=== PATIENT | female | born 1980 | race Caucasian/White ===

== ENCOUNTER → 2016-11-30 | Outpatient (CLI) | payer MEDICARE, OTHER ==
--- NOTE | ~2016-11-30 | MR113 ---
[facility] A Service [facility] RADIOLOGY TEXT RESULTS PATIENT: JOSE PERALTA LOCATION: [facility] : [birth year] UNIT #: [id number] AGE: [address]: Nico Stuart MD SEX: F ORDER DR: [id number] [address] [address] [id number] O MR#: [id number] Acc #: [id number] NAME: JOSE PERALTA. : 1980 SEX: F STUDY DATE/TIME: 11/30/2016 15:24 UNIT: [facility] ROOM: STUDY DESCRIPTION: MR Lumbar Wo Contrast Attending Physician: Nico Stuart M.D. Referring Physician: Nico Stuart M.D. Ordering Physician: Nico Stuart M.D. Primary Care Physician: Nico Stuart M.D. MRI CENTER REPORT This report is preliminary unless electronic signature is present. EXAM Lumbar MRI HISTORY Chronic back pain for the past 20 years, recently worsening. TECHNIQUE Multiplanar imaging lumbar spine was performed with short and long TR. FINDINGS Alignment is satisfactory. The upper 3 lumbar discs are normal. At L4-L5, there is disc space narrowing and mild desiccation of the disc without bulging or herniation. The L5-S1 disc is normal. No exiting nerve root compression is seen. No evidence of disc herniation. Posterior facets are intact. The conus is normal. There is no evidence of marrow edema or paraspinous mass. IMPRESSION Mild degenerative disc disease at L4-L5 without bulging or herniation. Otherwise, negative. Dictated by... Ray Torres M.D. THIS IS AN ELECTRONICALLY VERIFIED REPORT Ray Torres M.D. at 12/01/2016 4:52 PM RLF/pcl TD: 12/01/2016 15:41 JOB #: [id number] [facility] A Service [facility] RADIOLOGY TEXT RESULTS PATIENT: JOSE PERALTA LOCATION: [facility] #: [id number] : [birth year] UNIT #: [id number] AGE: [address]: Nico Stuart MD SEX: F ORDER DR: MRI CENTER REPORT Page 1 of 1
== END | disposition home or self-care (01) ==
LOC: SMRI 15:01
DX: M54.5 Low back pain (principal); M51.36 Other intervertebral disc degeneration, lumbar region
CPT/HCPCS: 72148

== ENCOUNTER 2016-12-22 15:23 | Emergency (ER) | payer MEDICARE, OTHER ==
--- NOTE | ~2016-12-22 | CR173 ---
[facility] A Service of [facility] RADIOLOGY TEXT RESULTS PATIENT: JOSE PERALTA LOCATION: SED : [birth year] UNIT #: [id number] AGE: [address]: Reji Vega SEX: F ORDER DR: [id number] [address] [address] [id number] E MR#: [id number] Acc #: [id number] NAME: JOSE PERALTA. : 1980 SEX: F STUDY DATE/TIME: 12/22/2016 16:18 UNIT: SED ROOM: STUDY DESCRIPTION: CR Knee 3 Views Rt Attending Physician: Reji Vega P.A.-C. Ordering Physician: Reji Vega P.A.-C. Primary Care Physician: Nico Stuart M.D. MEDICAL IMAGING REPORT This report is preliminary unless electronic signature is present. EXAM Right knee, 3 views 12/22/2016 INDICATIONS A 36-year-old female who complains of anterior knee pain and swelling that began 3 days ago after the legs gave out while walking. TECHNIQUE Three views. No comparisons. FINDINGS The examination is negative. There is no acute fracture or significant degenerative change or joint effusion. IMPRESSION Negative Dictated by... Adilson Dey M.D. THIS IS AN ELECTRONICALLY VERIFIED REPORT Adilson Dey M.D. at 12/24/2016 7:28 AM Marely TD: 12/22/2016 22:25 JOB #: [id number] MEDICAL IMAGING REPORT Page 1 of 1
--- NOTE | ~2016-12-22 | CR151 ---
[facility] A Service [facility] RADIOLOGY TEXT RESULTS PATIENT: JOSE PERALTA LOCATION: SED : 82 UNIT #: [id number] AGE: [address]: Reji Vega PAC SEX: F ORDER DR: [id number] [place] [id number] E MR#: [id number] Acc #: [id number] NAME: JOSE PERALTA. : 1980 SEX: F STUDY DATE/TIME: 12/22/2016 16:18 UNIT: SED ROOM: STUDY DESCRIPTION: CR Hip Min 2 Views Rt Attending Physician: Reji Vega P.A.-C. Ordering Physician: Reji Vega P.A.-C. Primary Care Physician: Nico Stuart M.D. MEDICAL IMAGING REPORT This report is preliminary unless electronic signature is present. EXAM Right hip, 2 views, 12/22/2016. INDICATIONS 36-year-old female with history of pain in the right hip and knee that began 3 days ago. Leg gave out 3 days ago while walking. Anterior knee pain and swelling right hip pain. TECHNIQUE Two views of the right hip. COMPARISON No comparison. FINDINGS The examination is negative. No acute fracture or significant degenerative change nonspecific calcifications in the pelvis likely vascular in nature. IMPRESSION 1. Negative right hip. Dictated by... Adilson Dey M.D. THIS IS AN ELECTRONICALLY VERIFIED REPORT Adilson Dey M.D. at 12/24/2016 7:28 AM Henry TD: 12/22/2016 22:32 JOB #: [id number] [facility] A Service [facility] RADIOLOGY TEXT RESULTS PATIENT: JOSE EPRALTA LOCATION: SED : 82 UNIT #: [id number] AGE: [address]: Reji Vega PAC SEX: F ORDER DR: MEDICAL IMAGING REPORT Page 1 of 1
== END 2016-12-22 17:08 | disposition home or self-care (01) ==
LOC: SED 15:23
DX: S87.01XA Crushing injury of right knee, initial encounter (principal); Z88.2 Allergy status to sulfonamides; Z88.6 Allergy status to analgesic agent; Z88.8 Allergy status to other drugs, medicaments and biological substances; W23.0XXA Caught, crushed, jammed, or pinched between moving objects, initial encounter
CPT/HCPCS: 29505; 73502; 73562; 99283

== ENCOUNTER → 2016-12-28 | Outpatient (CLI) | payer OTHER, MEDICARE ==
--- NOTE | ~2016-12-28 | MR104 ---
[facility] A Service [facility] RADIOLOGY TEXT RESULTS PATIENT: JOSE PERALTA LOCATION: [facility] : 82 UNIT #: [id number] AGE: [address]: POOJA ROBERTO PA-C SEX: F ORDER DR: [id number] [address] [address] [id number] O MR#: [id number] Acc #: [id number] NAME: JOSE PERALTA : 1980 SEX: F STUDY DATE/TIME: 12/28/2016 15:04 UNIT: [facility] ROOM: STUDY DESCRIPTION: MR Knee Wo Contrast Rt Attending Physician: Pooja Roberto Pa-C Ordering Physician: Physician Non-Staff Primary Care Physician: Nico Stuart M.D. MRI CENTER REPORT This report is preliminary unless electronic signature is present. EXAM Right knee MRI without contrast, 12/28/2016. HISTORY 36-year-old female with right knee pain status post knee buckling while walking, 12/19/2016. No prior right knee surgery COMPARISON Right knee x-rays, 12/22/2016. TECHNIQUE Routine unenhanced multiplanar, multisequence high field MR imaging of the right knee was performed. FINDINGS The menisci are intact. Cruciate and collateral ligaments are intact. Extensor mechanism is intact. Trace joint effusion. No popliteal cyst. Patellofemoral articular cartilage is intact. Medial and lateral compartment articular cartilage is intact. Bone marrow signal is within normal limits. Visualized musculature is unremarkable. IMPRESSION 1. No evidence of a meniscus tear, acute ligament injury, or significant articular cartilage loss. 2. No acute bony abnormality. 3. Trace joint effusion, nonspecific. Dictated by... [facility] A Service [facility] RADIOLOGY TEXT RESULTS PATIENT: JOSE PERALTA LOCATION: [facility] : [birth year] UNIT #: [id number] AGE: [address]: POOJA ROBERTO PA-C SEX: F ORDER DR: Silvino Alaniz M.D. THIS IS AN ELECTRONICALLY VERIFIED REPORT Silvino Alaniz M.D. at 12/29/2016 9:21 AM RICCO/romario TD: 12/29/2016 08:58 JOB #: [id number] MRI CENTER REPORT Page 1 of 1
== END | disposition home or self-care (01) ==
LOC: SMRI 14:53
DX: S89.91XA Unspecified injury of right lower leg, initial encounter (principal)
CPT/HCPCS: 73721